=== PATIENT | female | born 1945 | race Caucasian/White ===

== ENCOUNTER → 2017-05-23 | Outpatient (CLI) | payer OTHER ==
[2014-07-30 12:16] VITALS: BP 118/69
--- NOTE | 2017-05-23 14:00 | RAD ---
Examination: Right shoulder, three views History: Fell 2 weeks ago Findings: There is a minimally deforming fracture involving the lateral end of the right clavicle. Th e AC joint is preserved. No bone destruction or major deformity is noted. The glenohumeral joint is s lightly narrowed but otherwise normal. Surgical hardware is noted in the neck. Impression: Findings consistent with subacute fracture lateral end right clavicle. Glenohumeral joint osteoarthritis. Reported By:
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
== END ==
LOC: RAD 13:24
PROVIDERS: ATTEND Nurse Practitioner Family
DX: R51 Headache (principal); M25.511 Pain in right shoulder; R29.6 Repeated falls; Z86.79 Personal history of other diseases of the circulatory system
CPT/HCPCS: 70450; 73030

== ENCOUNTER 2021-07-28 14:16 | Inpatient (IN) ==
[2021-07-28 19:40] LABS: MEAN PLATELET VOLUME 6.2 fL (7.4-11.0)
[2021-07-28 19:43] LABS: BASOPHILS % (AUTO) 0.8 % (0.2-1.0); EOSINOPHILS # (AUTO) 0.1 x10^3/uL (0.0-0.2); EOSINOPHILS % (AUTO) 1.8 % (0.9-2.9); HEMATOCRIT 35.8 % (36.0-47.0); HEMOGLOBIN 12.5 g/dL (12.0-16.0); LYMPHOCYTES # (AUTO) 0.8 X10^3/uL (1.3-2.9); LYMPHOCYTES % (AUTO) 16.5 % (21.0-51.0); MEAN CORPUSCULAR HEMOGLOBIN 31.3 pg (27.0-34.0); MEAN CORPUSCULAR HGB CONC 34.8 g/dL (33.0-35.0); MEAN CORPUSCULAR VOLUME 89.7 fL (80.0-100.0); MONOCYTES # (AUTO) 0.7 x10^3/uL (0.3-0.8); MONOCYTES % (AUTO) 14.9 % (0.0-13.0); NEUTROPHILS # (AUTO) 3.3 x10^3/uL (2.2-4.8); RED BLOOD COUNT 3.99 X10^6/uL (3.5-5.4); WHITE BLOOD COUNT 4.9 X10^3/uL (3.6-10.0)
[2021-07-28 19:57] LABS: ALANINE AMINOTRANSFERASE 14 Units/L (12-78); ALBUMIN 3.5 g/dL (3.4-5.0); ALKALINE PHOSPHATASE 80 Units/L (46-116); ASPARTATE AMINO TRANSFERASE 21 Units/L (15-37); BLOOD UREA NITROGEN 13 mg/dL (7-18); CALCIUM 8.2 mg/dL (8.5-10.1); CARBON DIOXIDE 24.6 mmol/L (21-32); CHLORIDE 104 mmol/L (98-107); CKMB % 0.7 % (<4); CREATINE KINASE 140 Units/L (26-192); CREATININE 1.04 mg/dL (0.55-1.02); SODIUM 136 mmol/L (136-145); TOTAL PROTEIN 6.9 g/dL (6.4-8.2); eGFR NON BLACK RACES 55 (>60)
[2021-07-28] MEDS ORDERED: POTASSIUM CHL 40 MEQ/NS 0.45% 500 ML IV PRN (20:40)
[2021-07-28] MEDS ORDERED: MICRO K EXTEN CAP 10 MEQ PO PRN (20:40)
[2021-07-28] MEDS ORDERED: KLOR-CON PO PRN (20:40)
[2021-07-28] MEDS ORDERED: K-DUR TAB 20 MEQ PO PRN (20:40)
[2021-07-28] MEDS ORDERED: POTASSIUM CHLORIDE LIQ 20 MEQ UDC PO PRN (20:40)
[2021-07-28] MEDS ORDERED: POTASSIUM CHL 60 MEQ/NS 0.45% 500 ML IV PRN (20:40)
[2021-07-28] MEDS: TOPAMAX PO SCH (22:03)
[2021-07-28] MEDS: APRESOLINE TAB 25 MG PO SCH (22:03)
[2021-07-28] MEDS: NS 1,000 ML IV 1,000 ML IV SCH (22:11)
[2021-07-29] MEDS: TYLENOL 500 MG TAB EXTRA STRENGTH PO PRN (00:12)
[2021-07-29 01:51] LABS: CKMB % 0.8 % (<4); CREATINE KINASE MB 1.1 ng/mL (0-4.0)
--- NOTE | 2021-07-29 06:43 | RAD ---
HISTORYWeaknessSTUDYChest AP [id number]/07/2022FINDINGSThe heart is within normal limits in size. The manjeet are normal. The aorta is mildly ectatic. The lungs remain hyperinflated likely consistent with COPD. Bibasilar chronic lung changes and subsegmental atelectasis are present. There is a question of a new patchy right basilar lung infiltrate possibly indicative of bronchopneumonia. Clinical correlation is recommended. The upper lung thomas are clear.IMPRESSIONCOPDBibasilar chronic lung changes with subsegmental atelectasis, stablePatchy infiltrate in the right lung base representing a change from the prior examination and likely indicative of developing bronchopneumonia.Electronically signed by: OSVALDO JANE (Jul 29, 2021 06:42:33)
[2021-07-29 07:47] LABS: BASOPHILS % (AUTO) 0.9 % (0.2-1.0); HEMATOCRIT 35.1 % (36.0-47.0); LYMPHOCYTES # (AUTO) 0.5 X10^3/uL (1.3-2.9); MEAN CORPUSCULAR HEMOGLOBIN 31.1 pg (27.0-34.0); MEAN CORPUSCULAR HGB CONC 34.3 g/dL (33.0-35.0); MEAN CORPUSCULAR VOLUME 90.8 fL (80.0-100.0); MEAN PLATELET VOLUME 6.4 fL (7.4-11.0); MONOCYTES # (AUTO) 0.6 x10^3/uL (0.3-0.8); NEUTROPHILS # (AUTO) 2.8 x10^3/uL (2.2-4.8); NEUTROPHILS % (AUTO) 69.1 % (42.0-75.0); RED BLOOD COUNT 3.87 X10^6/uL (3.5-5.4); RED CELL DISTRIBUTION WIDTH 15.1 % (11.6-16.5)
[2021-07-29] MEDS: TOPAMAX PO SCH ×3 (08:05→21:37)
[2021-07-29] MEDS: APRESOLINE TAB 25 MG PO SCH ×2 (08:05→21:36)
[2021-07-29 08:09] LABS: ALANINE AMINOTRANSFERASE 13 Units/L (12-78); ALBUMIN 3.2 g/dL (3.4-5.0); ALKALINE PHOSPHATASE 74 Units/L (46-116); ASPARTATE AMINO TRANSFERASE 18 Units/L (15-37); BLOOD UREA NITROGEN 11 mg/dL (7-18); CALCIUM 7.9 mg/dL (8.5-10.1); CARBON DIOXIDE 20.3 mmol/L (21-32); CHLORIDE 107 mmol/L (98-107); CKMB % 0.7 % (<4); COR CA(FOR HYPOALB) 8.5 mg/dL (8.5-10.1); CREATINE KINASE 136 Units/L (26-192); CREATINE KINASE MB < 1.0 ng/mL (0-4.0); CREATININE 1.01 mg/dL (0.55-1.02); SODIUM 136 mmol/L (136-145); TOTAL PROTEIN 6.3 g/dL (6.4-8.2); eGFR NON BLACK RACES 57 (>60)
[2021-07-29] MEDS: XOPENEX 1.25 MG/3 ML NEBULE NEB SCH ×3 (09:32→20:17)
[2021-07-29] MEDS: LEVAQUIN PREMIX IV 500 MG 500 MG/100 ML BAG IV SCH (10:00)
[2021-07-29] MEDS: LOVENOX INJ 30 MG SYR SC SCH (11:00)
[2021-07-29] MEDS: NS 1,000 ML IV 1,000 ML IV SCH (11:22)
[2021-07-29] MEDS: KLONOPIN TAB 0.5 MG PO SCH ×2 (12:00→21:37)
[2021-07-29] MEDS: CELEBREX PO SCH (12:00)
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
[2021-07-29] MEDS ORDERED: HALDOL INJ IM PRN (17:40)
[2021-07-29] MEDS: ATIVAN INJ 2 MG VIAL IVP PRN (18:05)
[2021-07-30 00:05] LABS: BILIRUBIN,URINE NEGATIVE (NEGATIVE); BLOOD/HEMOGLOBIN,URINE 2+ (NEGATIVE); GLUCOSE, URINE NEGATIVE (NEGATIVE); KETONES,URINE NEGATIVE (NEGATIVE); LEUKOCYTE ESTERASE ,URINE 2+ (NEGATIVE); NITRITES,URINE NEGATIVE (NEGATIVE); PROTEIN,URINE NEGATIVE (NEGATIVE); UROBILINOGEN,URINE NORMAL (NORMAL)
[2021-07-30] MEDS: FORTAZ or TAZICEF VIAL INJ 1 G in NS 100 ML IV 100 ML IV SCH ×5 (00:10→13:44)
[2021-07-30 00:15] LABS: APPEARANCE,URINE CLEAR (CLEAR); COLOR,URINE YELLOW (YELLOW)
[2021-07-30 00:16] LABS: BACTERIA,URINE NEGATIVE /HPF (NEGATIVE); RBC,URINE 0-2 /HPF (0-3); SQUAMOUS EPITHELIAL CELL,UR RARE /HPF (NEGATIVE)
[2021-07-30] MEDS: XOPENEX 1.25 MG/3 ML NEBULE NEB SCH ×4 (05:50→20:20)
[2021-07-30] MEDS: TYLENOL 500 MG TAB EXTRA STRENGTH PO PRN (06:24)
[2021-07-30 06:27] LABS: BASOPHILS % (AUTO) 0.4 % (0.2-1.0); EOSINOPHILS # (AUTO) 0.1 x10^3/uL (0.0-0.2); EOSINOPHILS % (AUTO) 1.3 % (0.9-2.9); HEMATOCRIT 35.6 % (36.0-47.0); HEMOGLOBIN 12.3 g/dL (12.0-16.0); LYMPHOCYTES # (AUTO) 0.4 X10^3/uL (1.3-2.9); LYMPHOCYTES % (AUTO) 6.3 % (21.0-51.0); MEAN CORPUSCULAR HEMOGLOBIN 31.3 pg (27.0-34.0); MEAN CORPUSCULAR HGB CONC 34.6 g/dL (33.0-35.0); MEAN CORPUSCULAR VOLUME 90.6 fL (80.0-100.0); MEAN PLATELET VOLUME 6.6 fL (7.4-11.0); MONOCYTES # (AUTO) 0.7 x10^3/uL (0.3-0.8); MONOCYTES % (AUTO) 9.7 % (0.0-13.0); NEUTROPHILS # (AUTO) 5.7 x10^3/uL (2.2-4.8); NEUTROPHILS % (AUTO) 82.3 % (42.0-75.0); RED BLOOD COUNT 3.93 X10^6/uL (3.5-5.4); WHITE BLOOD COUNT 6.9 X10^3/uL (3.6-10.0)
[2021-07-30 06:50] LABS: ALANINE AMINOTRANSFERASE 8 Units/L (12-78); ALBUMIN 3.1 g/dL (3.4-5.0); ALKALINE PHOSPHATASE 77 Units/L (46-116); ASPARTATE AMINO TRANSFERASE 24 Units/L (15-37); BLOOD UREA NITROGEN 7 mg/dL (7-18); CARBON DIOXIDE 16.8 mmol/L (21-32); CHLORIDE 104 mmol/L (98-107); COR CA(FOR HYPOALB) 8.7 mg/dL (8.5-10.1); CREATININE 0.82 mg/dL (0.55-1.02); SODIUM 133 mmol/L (136-145); TOTAL PROTEIN 6.4 g/dL (6.4-8.2); eGFR NON BLACK RACES > 60 (>60)
[2021-07-30] MEDS: KLONOPIN TAB 0.5 MG PO SCH ×3 (08:27→22:11)
[2021-07-30] MEDS: CELEBREX PO SCH ×2 (08:27→08:44)
[2021-07-30] MEDS: APRESOLINE TAB 25 MG PO SCH ×2 (08:27→08:44)
[2021-07-30] MEDS: LEVAQUIN PREMIX IV 500 MG 500 MG/100 ML BAG IV SCH (08:27)
[2021-07-30] MEDS: LOVENOX INJ 30 MG SYR SC SCH ×2 (08:27→08:44)
[2021-07-30] MEDS: TOPAMAX PO SCH ×3 (08:28→22:11)
[2021-07-30] MEDS: ATIVAN INJ 2 MG VIAL IVP PRN (08:43)
[2021-07-30] MEDS ORDERED: NS 100 ML IV 100 ML ONE ×2 (08:48→10:03)
[2021-07-30] MEDS ORDERED: FORTAZ or TAZICEF VIAL INJ 1 G in NS 100 ML IV + SPIKE MINIBAG* 100 ML IV SCH (09:00)
[2021-07-30] MEDS: MORPHINE SULFATE INJ 2 MG INJ IVP PRN ×2 (09:00→17:56)
[2021-07-30 10:06] LABS: ABG BASE EXCESS -6.7 mmol/L (-2.0-2.0)
[2021-07-30 10:07] LABS: ABG ALLEN TEST POS; ABG HCO3 16.9 mmol/L (22-26)
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
--- NOTE | 2021-07-30 11:16 | CT ---
HISTORYPNEUMONIA, SOBSTUDYCTA CHESTCOMPARISONChest radiograph from 07/28/2021.TECHNIQUECTA chest protocol with axial images from the thoracic inlet to upper abdomen with IV contrast. Sagittal and coronal reformats and MIP images were created. Automated exposure control was utilized.FINDINGSModerate motion artifact limits evaluation. The visualized thyroid gland appears benign. Moderately atherosclerotic normal caliber thoracic aorta. Ascending thoracic aorta measures up to 3.6 cm which is not dilated. The pulmonary artery is patent without discernible thrombus. Normal caliber central pulmonary artery. The heart is normal in size. No pericardial effusion. Esophagus is mildly distended with debris. Visualized upper abdomen appears benign. No discernible acute osseous abnormality. The trachea and mainstem bronchi are patent. There are opacities in the right lower lobe, some of which appear nodular and some linear. For example, there is a nodular 14 x 7 mm axial dimension opacity in the right lower lobe image 101 series 6. There is a nodular 11 x 7 mm axial dimension right lower lobe pulmonary opacity image 107 series 6. Nodular opacity in the lingula measures 9 by 5 mm image 99 series 6. No pleural effusion or pneumothorax. Severe C7-T1 facet arthropathy with grade 1 anterolisthesis. Linear opacity in the right middle lobe image 15 series 8.IMPRESSIONThere are multiple lower lung predominant nodular opacities that may represent metastatic disease. Moderate motion artifact limits evaluation. Recommend repeat CT if patient can hold still.No discernible PE.Electronically signed by: Israel Low (Jul 30, 2021 11:15:04)
--- NOTE | 2021-07-30 14:18 | RAD ---
HISTORYCENTRAL LINE PLACEMENTSTUDYCHEST, 1 [id number]/23/2022FINDINGSThe cardiomediastinal silhouette is stable. Similar bilateral airspace opacities. Left-sided central venous catheter placement with tip overlying the SVC. No pneumothorax or effusion. The bony thorax appears intact.IMPRESSIONLeft-sided central venous catheter placement with tip overlying the SVC.Similar bilateral airspace opacities and nodules.Electronically signed by: OSVALDO JANE (Jul 30, 2021 14:17:40)
[2021-07-30] MEDS: APRESOLINE INJ 20 MG VIAL IVP PRN (14:30)
[2021-07-30] MEDS: MAGNESIUM SULFATE 1 GRAM/100 mL PREMIX 1 G/100 ML BAG IV PRN ×2 (22:39→23:35)
[2021-07-30] MEDS: K-RIDER 10 MEQ/NS 100 ML 10 MEQ/100 ML BAG IV PRN ×2 (22:40→23:36)
[2021-07-31] MEDS: K-RIDER 10 MEQ/NS 100 ML 10 MEQ/100 ML BAG IV PRN ×2 (00:30→01:30)
[2021-07-31] MEDS: MORPHINE SULFATE INJ 2 MG INJ IVP PRN ×3 (01:30→11:26)
[2021-07-31 05:41] LABS: BASOPHILS % (AUTO) 0.4 % (0.2-1.0); HEMATOCRIT 33.2 % (36.0-47.0); HEMOGLOBIN 11.5 g/dL (12.0-16.0); LYMPHOCYTES # (AUTO) 0.4 X10^3/uL (1.3-2.9); LYMPHOCYTES % (AUTO) 2.9 % (21.0-51.0); MEAN CORPUSCULAR HEMOGLOBIN 31.5 pg (27.0-34.0); MEAN CORPUSCULAR HGB CONC 34.8 g/dL (33.0-35.0); MEAN CORPUSCULAR VOLUME 90.6 fL (80.0-100.0); MEAN PLATELET VOLUME 6.8 fL (7.4-11.0); MONOCYTES # (AUTO) 1.6 x10^3/uL (0.3-0.8); MONOCYTES % (AUTO) 13.1 % (0.0-13.0); NEUTROPHILS # (AUTO) 10.5 x10^3/uL (2.2-4.8); NEUTROPHILS % (AUTO) 83.6 % (42.0-75.0); RED BLOOD COUNT 3.66 X10^6/uL (3.5-5.4); RED CELL DISTRIBUTION WIDTH 14.7 % (11.6-16.5); WHITE BLOOD COUNT 12.5 X10^3/uL (3.6-10.0)
[2021-07-31 05:51] LABS: ALANINE AMINOTRANSFERASE 12 Units/L (12-78); ALBUMIN 2.7 g/dL (3.4-5.0); ALKALINE PHOSPHATASE 68 Units/L (46-116); ASPARTATE AMINO TRANSFERASE 24 Units/L (15-37); BLOOD UREA NITROGEN 11 mg/dL (7-18); CALCIUM 7.8 mg/dL (8.5-10.1); CARBON DIOXIDE 19.1 mmol/L (21-32); CHLORIDE 98 mmol/L (98-107); COR CA(FOR HYPOALB) 8.8 mg/dL (8.5-10.1); CREATININE 0.82 mg/dL (0.55-1.02); SODIUM 128 mmol/L (136-145); TOTAL PROTEIN 6.1 g/dL (6.4-8.2); eGFR NON BLACK RACES > 60 (>60)
[2021-07-31] MEDS: FORTAZ or TAZICEF VIAL INJ 1 G in NS 100 ML IV 100 ML IV SCH (06:15)
[2021-07-31] MEDS: XOPENEX 1.25 MG/3 ML NEBULE NEB SCH ×3 (06:23→21:25)
[2021-07-31] MEDS: LEVAQUIN PREMIX IV 500 MG 500 MG/100 ML BAG IV SCH (08:55)
[2021-07-31] MEDS: TOPAMAX PO SCH ×2 (10:35→20:20)
[2021-07-31] MEDS: KLONOPIN TAB 0.5 MG PO SCH ×2 (10:35→20:20)
[2021-07-31] MEDS: CELEBREX PO SCH (10:35)
[2021-07-31] MEDS ORDERED: PHARMACY CONSULT - VANCOMYCIN XX SCH (11:00)
[2021-07-31] MEDS: LOVENOX INJ 30 MG SYR SC SCH (11:44)
[2021-07-31] MEDS: VANCOMYCIN IV *PREMIX 500 mg/100 ML BAG 500 MG/100 ML PIGGYBACK IV SCH (12:04)
[2021-07-31] MEDS: ZOSYN VIAL 3.375 GRAMS 3.375 G in NS 100 ML IV 100 ML IV SCH ×3 (12:04→21:02)
[2021-07-31 14:16] VITALS: BMI 17.2
[2021-07-31] MEDS: ATIVAN INJ 2 MG VIAL IVP PRN ×2 (14:45→21:03)
[2021-07-31] MEDS: LOPRESSOR INJ 5 MG AMP IVP SCH ×2 (15:09→20:24)
[2021-08-01] MEDS: APRESOLINE INJ 20 MG VIAL IVP PRN (01:15)
[2021-08-01] MEDS: LOPRESSOR INJ 5 MG AMP IVP SCH ×4 (02:16→20:25)
[2021-08-01] MEDS ORDERED: TYLENOL SUPP 650 MG PR PRN (02:17)
[2021-08-01] MEDS ORDERED: TYLENOL SUPP 650 MG ONE (02:23)
[2021-08-01 03:42] LABS: BASOPHILS % (AUTO) 0.1 % (0.2-1.0); HEMATOCRIT 35.2 % (36.0-47.0); LYMPHOCYTES # (AUTO) 0.2 X10^3/uL (1.3-2.9); LYMPHOCYTES % (AUTO) 1.3 % (21.0-51.0); MEAN CORPUSCULAR HGB CONC 34.1 g/dL (33.0-35.0); MEAN CORPUSCULAR VOLUME 90.9 fL (80.0-100.0); MEAN PLATELET VOLUME 6.6 fL (7.4-11.0); MONOCYTES # (AUTO) 1.4 x10^3/uL (0.3-0.8); MONOCYTES % (AUTO) 11.2 % (0.0-13.0); NEUTROPHILS # (AUTO) 11.2 x10^3/uL (2.2-4.8); NEUTROPHILS % (AUTO) 87.4 % (42.0-75.0); RED BLOOD COUNT 3.87 X10^6/uL (3.5-5.4); RED CELL DISTRIBUTION WIDTH 14.7 % (11.6-16.5); WHITE BLOOD COUNT 12.8 X10^3/uL (3.6-10.0)
[2021-08-01 03:50] LABS: ALANINE AMINOTRANSFERASE 14 Units/L (12-78); ALBUMIN 2.5 g/dL (3.4-5.0); ALKALINE PHOSPHATASE 70 Units/L (46-116); ASPARTATE AMINO TRANSFERASE 38 Units/L (15-37); BLOOD UREA NITROGEN 18 mg/dL (7-18); CALCIUM 7.9 mg/dL (8.5-10.1); CARBON DIOXIDE 18.4 mmol/L (21-32); CHLORIDE 97 mmol/L (98-107); COR CA(FOR HYPOALB) 9.1 mg/dL (8.5-10.1); CREATININE 0.95 mg/dL (0.55-1.02); SODIUM 127 mmol/L (136-145); TOTAL PROTEIN 6.2 g/dL (6.4-8.2); eGFR NON BLACK RACES > 60 (>60)
--- NOTE | 2021-08-01 04:00 | RAD ---
STUDY: FRONTAL VIEW CHESTCOMPARISON: July 31, 2021HISTORY: SOBFINDINGS:COPD/emphysema is noted.There is slight improved aeration of the lungs bilaterally with residual airspace disease in the bilateral lower lung zones.No focal consolidation is seen.The heart size is within normal limits.The mediastinum is unremarkable.There is no evidence of pleural effusion or gross pneumothorax.The trachea is midline.IMPRESSION:COPD/emphysema is noted.There is slight improved aeration of the lungs bilaterally with residual airspace disease in the bilateral lower lung zones.Electronically signed by: Kevin Mathis (Aug 01, 2021 03:59:38)
[2021-08-01] MEDS: ZOSYN VIAL 3.375 GRAMS 3.375 G in NS 100 ML IV 100 ML IV SCH ×3 (05:05→21:01)
[2021-08-01] MEDS: XOPENEX 1.25 MG/3 ML NEBULE NEB SCH ×3 (07:09→20:49)
[2021-08-01] MEDS: LOVENOX INJ 30 MG SYR SC SCH (08:31)
[2021-08-01] MEDS: CELEBREX PO SCH (09:15)
[2021-08-01] MEDS: TOPAMAX PO SCH ×2 (09:16→20:25)
[2021-08-01] MEDS: KLONOPIN TAB 0.5 MG PO SCH ×2 (09:16→20:25)
[2021-08-01 11:05] LABS: CKMB % 0.7 % (<4); CREATINE KINASE MB 5.2 ng/mL (0-4.0)
[2021-08-01] MEDS: VANCOMYCIN IV *PREMIX 500 mg/100 ML BAG 500 MG/100 ML PIGGYBACK IV SCH (11:23)
[2021-08-01] MEDS: NS 1,000 ML IV 1,000 ML IV SCH ×2 (11:23→18:06)
[2021-08-01] MEDS: ATIVAN INJ 2 MG VIAL IVP PRN (18:24)
[2021-08-01 22:04] VITALS: BP 149/67
--- NOTE | 2021-08-02 12:50 | DR.OPNOTE ---
OP NOTE Pre-Op Diagnosis: Bronchopneumonia, need for IV access Post-Op Diagnosis: same Procedure Date Date Of Procedure: 07/30/21 Procedure: PROCEDURE : Left subclavian vein triple Lumen catheter placement NARRATIVE: The patient was in the ICU in the supine position. She was placed in Trendelenburg position and the left subclavicular area and left neck prepped and draped in sterile fashion. The skin underlying the left clavicle infiltrated with 1% Xylocaine as was the left chest wall. 16 gauge needle use to puncture the left subclavian vein under the left clavicle and a guide wire place without difficulty. Incision made over the guide wire at the skin edge and the dilator placed into the subclavian vein. Dilator removed and the catheter placed over the wire. Wire removed and all three ports aspirated of blood and flushed with heparinized saline . The catheter secured to the skin with interrupted silk sutures . Post-procedure chest x-ray showed no pneumothorax with good placement in the innominate vein and significant right sided bronchopneumonia. Type of Anesthesia: Local EBL: minimal Drains/Tubes Placed: None Complications:: none Needle/Sponge Count:: correct Disposition/Condition: Pt. tolerated procedure without difficulty. Still in ICU in stable condition.
== END 2021-08-02 02:00 | disposition expired | DRG 195 ==
LOC: MED/SURG → OBSVTOIN 14:20 → INTOOBSV 14:20 → ICU 07-30 12:21 → UNDODISOB 08-02 02:00
PROVIDERS: ADMIT Internal Medicine; ATTEND Internal Medicine